=== PATIENT | female | born 1970 | race Caucasian/White ===

== ENCOUNTER 2020-03-29 12:45 | Emergency (ER) | payer MEDICARE, MEDICAID ==
[~2020-03-29] VITALS: Ht 160 cm; Wt 84.1 kg
[~2020-03-29 12:45] MED LIST: CLON-528 PO; VARE1TAB11 PO; VENL150C50 PO
[2020-03-29 13:22] LABS: CLARITY,URINE CLEAR (Clear); COLOR,URINE STRAW (Yellow); GLUCOSE, URINE NEGATIVE (Neg); KETONES,URINE NEGATIVE (Neg); LEUKOCYTE ESTERASE ,URINE NEGATIVE (Neg); NITRITES, URINE NEGATIVE (Neg); OCCULT BLOOD,URINE NEGATIVE (Neg); PH,URINE 5.5 (4.8-8.0); PROTEIN,URINE NEGATIVE (Neg); URINE HCG NEGATIVE (NEG); UROBILINOGEN,URINE 0.2 E.U/dL (0.2-1.0)
[2020-03-29 13:24] LABS: UA COLLECTION TYPE CLN CATCH MIDSTREAM
[2020-03-29] MEDS ORDERED: ketorolac trometh. 30mg/ml inj. IM ONE (14:35)
[2020-03-29] MEDS ORDERED: acetaminophen 325mg tablet PO ONE (14:35)
[2020-03-29] MEDS ORDERED: CYCL-1 PO (14:45)
[2020-03-29 14:55] VITALS: BP 133/105
== END 2020-03-29 14:56 | disposition home or self-care (01) ==
LOC: ER 12:45
DX: M54.5 Low back pain (principal); I10 Essential (primary) hypertension; E11.9 Type 2 diabetes mellitus without complications; Z87.448 Personal history of other diseases of urinary system; F17.200 Nicotine dependence, unspecified, uncomplicated; Z88.2 Allergy status to sulfonamides; Z79.899 Other long term (current) drug therapy
CPT/HCPCS: 81003; 81025; 96372; 99283; J1885

== ENCOUNTER → 2023-10-11 | Outpatient (CLI) | payer MEDICARE, MEDICAID ==
[~2023-10-11] MED LIST changes: -CLON-528 PO; +CLON-850 PO; +CYCL-1 PO
== END | disposition home or self-care (01) ==
LOC: RAD 16:25
PROVIDERS: ATTEND Nurse Practitioner Primary Care
DX: M25.522 Pain in left elbow (principal)
CPT/HCPCS: 73080

== ENCOUNTER 2024-10-02 14:07 | Emergency (ER) | payer MEDICARE, MEDICAID ==
[~2024-10-02] VITALS: Ht 160 cm; Wt 77.1 kg
--- NOTE | 2024-10-02 16:46 | Physician Documentation ---
History of Present Illness Chief Complaint: Abdominal Pain w/vomiting Stated Complaint: N/V OK to notify your PCP?: Yes Primary Medical Doctor: [facility] Source: patient, RN/MD, RN notes reviewed Mode of Arrival: POV Exam Limitations: no limitations HPI 54 year old female, with history of depression, anxiety, hyperlipidemia, hyp ertension, and kidney stones, complains of right upper and epigastric abdominal pain beginning 3 days ago after eating a chicken burger at [facility]. Pain has been waxing/waning, occasionally radiates to the back, but is currently improved. She also describes nausea and vomiting over this time. She does also note some occasional "heartburn." She denies any diarrhea, bloody stools, or fever. She denies history of gallstones. Medication Reconciliation Allergies: Coded Allergies: Sulfa (Sulfonamide Antibiotics) (Verified Allergy, Severe, PALAK, 10/02/24) Scheduled Dicyclomine Hcl* (Bentyl*), 1 CAP PO Q8H Pantoprazole Sodium (Protonix), 1 TAB PO DAILY Varenicline Tartrate (Chantix), 1 MG PO BID, (Reported) Venlafaxine Hcl* (Effexor Xr*), 300 MG PO DAILY, (Reported) Scheduled PRN Clonazepam (Klonopin), 2 TAB PO HS PRN for for anxiety/agitation, (Reported) Cyclobenzaprine* (Cyclobenzaprine*), 1 TAB PO TID PRN for muscle spasms ONDANSETRON ODT 4mg tablet (Ondansetron Odt), 1 TAB PO Q6H PRN PRN for nausea/vomiting Past Medical History Past Medical History: High Cholesterol, Hypertension, Kidney Stones, Diabetes, Anxiety, Depression Past Surgical History: noncontributory Smoking Status: Light Tobacco User (vape) Alcohol Use: Occasionally Drug Use: marijuana Lives with: Other Lives In: Home Occupation: employed Review of Systems All Other Systems at this time: Reviewed and Negative ROS As stated above in the HPI, otherwise all systems are reviewed and negative. Physical Exam Vital Signs: RN Vital Signs have been reviewed: Yes, Temperature: 98.6, Source: Temporal, Heart Rate: 83, Respiratory Rate: 18, BP: 183/99, Pulse Oximetry: 97, Weight: 77.100 Oxygen Flow Rate: 0 Pulse Oximetry Reflects: adequate oxygenation Physical Exam General: The patient is well developed, well nourished, nontoxic appearing and is in no acute distress. Skin: Santel, warm and dry with no rashes. HEENT: Head was normocephalic and atraumatic. Chest: Clear to auscultation bilaterally without wheezes, rales or rhonchi. No accessory muscle use. No dullness to percussion. Heart: Rate regular and rhythmic. S1, S2. No murmurs. Palpation of the chest wall was normal. No rubs or thrills. Abdomen: RUQ TTP. Soft and nondistended. Positive bowel sounds. No guarding or rebound. Extremities: No cyanosis, clubbing or edema. The patient moves all extremities. Pulses were equal and symmetric. Neurologic: Motor and sensation grossly intact. Cranial nerves II-XII grossly intact. A & O x4. Psychologic: Normal mood and affect. No agitation. Progress Results/Orders Reviewed/noted all lab results: Yes Results/Orders Vital Signs 10/02/24 14:08 Temp 98.6 Pulse 83 Resp 18 B/P (MAP) 183/99 Pulse Ox 97 O2 Flow Rate 0 Re-Evaluation Re-Evaluation : Re-Evaluation: Improved Progress Patient was seen and examined. Patient is given reassurance. Patient was complaining of abdominal pain postprandial has been sick patient received IV line fluids ultrasound was negative for gallstones. Fatty liver was seen on ultrasound. Cat scan results are pending patient wants to go home still having some pain. GI cocktail was provided as well as some Bentyl prescribed Bentyl Zofran and Protonix. Laboratory work CBC was within normal limits no signs of anemia. Chemistry within normal limits as well lipase 27. LFTs are pending. After some fluids pain meds nausea medications patient is still has some discomfort as well. The patient will follow up with the primary care physician as needed. With a normal white count infectious etiology is unlikely. Possibility of ulcers gastritis was also considered. There was no GI bleeding. Continuous cardiac cath technician interpretation shows normal sinus rhythm heart rate 80s, no ectopy, normal, my interpretation. Pulse oximetry monitor interpretation shows normal oxygenation 98% room air, normal, my interpretation. EKG/XRAY/CT/US/VASC/MRI CT : Impression CT OF THE ABDOMEN AND PELVIS WITH CONTRAST. HISTORY: ABD PAIN COMPARISON: None TECHNIQUE: Helical axial CT images of the abdomen and pelvis were obtained with intravenous contrast. Multiplanar reformats. One or more of the following radiation dose reduction techniques were used for this examination: automated exposure control, adjustment of the mA and/or kV according to patient size, use of iterative reconstruction technique. FINDINGS: Imaged lung bases are grossly clear. Liver: Decreased hepatic parenchymal attenuation. Scattered hypodensities throughout the liver may represent cysts but are otherwise too small to further characterize. Gallbladder and biliary system: No sizable, radiopaque cholelithiasis or biliary ductal dilatation. Pancreas: Tail of the pancreas appears to abut the left kidney. This may reflect ectopic pancreatic tissue. There is some adjacent fat stranding. Spleen: Negative. Adrenal Glands: Indeterminate left adrenal nodule measuring approximately 1.3 cm in diameter. Kidneys and collecting system: No hydroureteronephrosis or sizable, obstructing urinary tract calculi identified. Retroperitoneum: No evidence of aortic aneurysm. Lymph nodes: No discretely enlarged lymph nodes identified. Bowel: Thickening/ edema involving the distal stomach. This may be in part due to underdistention. No evidence of small-bowel obstruction. Normal caliber appendix. No free intraperitoneal air or fluid identified. Pelvis: No sizable bladder calculus. Osseous structures: No destructive osseous lesions identified. IMPRESSION: Thickening/ edema involving the distal stomach. Correlate for gastritis. Fat stranding near the tail of the pancreas. Pancreatitis is also included in the differential diagnosis. Possible ectopic pancreatic tissue near the left kidney. Indeterminate left adrenal nodule. Scattered hypodensities throughout the liver may represent cysts but are otherwise too small to further characterize. Follow-up MRI may be obtained to evaluate the hepatic, pancreatic and adrenal findings. Ultrasound : Interpreted By: self Impression RIGHT UPPER QUADRANT ABDOMINAL ULTRASOUND CLINICAL HISTORY: ruq pain post prandial COMPARISON: None TECHNIQUE: Grayscale and color Doppler ultrasound imaging of the right upper quadrant is performed. FINDINGS: Pancreas: Visualized portions appear grossly unremarkable. Liver: Increased hepatic parenchymal echogenicity. No discrete hepatic lesions as visualized. The portal vein appears patent. Gallbladder: No sizable, shadowing calculi. No gallbladder wall thickening. No sonographic gomez's sign. Common bile duct: Nondilated. Right Kidney: Measures 12.1 cm in length. No hydronephrosis. Right upper quadrant Inferior vena cava: Visualized portions appear grossly patent. IMPRESSION: Increased hepatic parenchymal echogenicity which is most commonly seen with fatty infiltration. Other diffusely infiltrative processes not excluded. Please correlate clinically. Medical Decision Making Additional info obtained from: old records Differential Dx:Considerations: Include: Appendicitis, Bowel obstruction, Cholangitis, Cholelithasis, Constipation, Diverticular disease, Esophagitis, Gastritis/PUD, Gastroenteritis, GI hemorrhage, Hernia, Hepatitis, Inflammatory BD, Pancreatitis, Urinary obstruction, Urinary tract infection, Urolithiasis, Other Departure Disposition: HOME / SELF CARE / HOMELESS Impression: Primary Impression: Abdominal pain Qualified Codes: R10.13 - Epigastric pain Additional Impression: Acute gastritis Qualified Codes: K29.00 - Acute gastritis without bleeding Condition: Improved Discharge Instructions: Abdominal Pain (Nonspecific) Referrals: NO PRIMARY CARE PROVIDER (PCP) Prescriptions Pantoprazole Sodium (Protonix) 20 Mg Tablet.dr 1 TAB PO DAILY for 15 Days, #15 TAB 0 Refills Prov: ELIOT BRAN MD 10/02/24 ONDANSETRON ODT 4mg tablet (ONDANSETRON ODT) 4 Mg Tab.rapdis 1 TAB PO Q6H PRN PRN for nausea/vomiting for 4 Days, #16 TAB 0 Refills Prov: ELIOT BRAN MD 10/02/24 Dicyclomine Hcl* (Bentyl*) 10 Mg Capsule 1 CAP PO Q8H for irritable bowel symptoms for 10 Days, #20 CAP Prov: ELIOT BRAN MD 10/02/24 Education Educated: Patient Educated regarding: diagnosis, need for follow up Additional Comment Medical Screen Exam History: 54-year-old female presents with three days of persistent upper abdominal pain beginning to travel to her lower abdomen described as pressure and gas, patient reports this began after eating at a restaurant on Wednesday and worsening until yesterday night when she had several episodes of vomiting. Patient reports oral intake due to being unable to tolerates food or drink beginning last night. Patient reports no fevers or diarrhea. Patient reports no blood in vomit or stool. Exam: VITALS: Reviewed and as above. GENERAL: Alert, nontoxic appearing, no apparent distress. RESPIRATORY: No increased work of breathing, no respiratory distress, speaking in full clear sentences GI: Nondistended, upper quadrant tender to palpation no rebound, no guarding, bowel sounds present Signature Scribe Signature: Scribed for Eliot Bran MD by Lesly Rosario . 10/02/24 17:53 Attestation: The note accurately reflects work and decisions made by me.Eliot Bran MD 10/02/24 22:11 KENDAL MALDONADO Oct 02, 2024 16:46 LESLY FARIAS Oct 02, 2024 18:00 ELIOT BRAN MD Oct 02, 2024 21:54
[2024-10-02 17:12] LABS: BASOPHILS # (AUTO) 0.1 X10'3 (0-0.2); BASOPHILS % (AUTO) 0.8 % (0-1); EOSINOPHILS % (AUTO) 0.2 % (0-6); HEMOGLOBIN 14.9 g/dl (12.0-16.0); LYMPHOCYTES # (AUTO) 1.9 X10'3 (1.1-4.8); LYMPHOCYTES % (AUTO) 19.1 % (21-51); MEAN CORPUSCULAR HEMOGLOBIN 30.1 PG (27.0-31.0); MEAN CORPUSCULAR HGB CONC 33.8 g/dL (33.0-36.5); MEAN CORPUSCULAR VOLUME 89.2 FL (78-98); MEAN PLATELET VOLUME 8.5 FL (7.4-10.4); MONOCYTES # (AUTO) 0.6 X10'3 (0-0.9); MONOCYTES % (AUTO) 6.5 % (2-12); NEUTROPHILS # (AUTO) 7.1 X10'3 (1.8-7.7); NEUTROPHILS % (AUTO) 73.4 % (42-75); PLATELET COUNT 452 X10'3 (140-440); RED BLOOD COUNT 4.93 X10'6 (4.20-5.60); RED CELL DISTRIBUTION WIDTH 13.4 % (11.5-14.5); WHITE BLOOD COUNT 9.7 X10'3 (4.5-11.0)
[2024-10-02 17:24] LABS: ALBUMIN 4.4 G/DL (3.4-5.0); ANION GAP 9 (8-16); BLOOD UREA NITROGEN 14 MG/DL (7-18); BUN/CREATININE RATIO 16.1 (10.0-20.0); CHLORIDE 102 MMOL/L (99-107); CREATININE 0.87 MG/DL (0.40-0.90); ETHANOL < 10 MG/DL (<10); GLUCOSE 121 MG/DL (70-104); LIPASE 27 U/L (16-77); MAGNESIUM 2.1 MG/DL (1.5-2.4); POTASSIUM 3.7 MMOL/L (3.5-5.1); SODIUM 141 MMOL/L (135-145); TOTAL CARBON DIOXIDE 30.2 MMOL/L (24-32); eCRCL 62 ML/MIN; eGFR 68 ML/MIN
[2024-10-02] MEDS: ondansetron/PF 4mg/2ml inj IV ONE (18:01)
[2024-10-02] MEDS: normal saline 1000ML IV soln IVB ONE (18:01)
[2024-10-02] MEDS: ketorolac trometh 15mg/ml vial 15 MG/ML ML IV ONE (18:02)
[2024-10-02 18:06] VITALS: BP 142/74; PULSE 62; O2SAT 96
[2024-10-02] MEDS ORDERED: iohexol 300mg/ml 100ml inj. ONE (19:19)
[2024-10-02] MEDS: normal saline 1000ml 1,000 ML IV ONE (20:05)
--- NOTE | 2024-10-02 20:12 | RADIOLOGY REPORT ---
RIGHT UPPER QUADRANT ABDOMINAL ULTRASOUND CLINICAL HISTORY: ruq pain post prandial COMPARISON: None TECHNIQUE: Grayscale and color Doppler ultrasound imaging of the right upper quadrant is performed. FINDINGS: Pancreas: Visualized portions appear grossly unremarkable. Liver: Increased hepatic parenchymal echogenicity. No discrete hepatic lesions as visualized. The po rtal vein appears patent. Gallbladder: No sizable, shadowing calculi. No gallbladder wall thickening. No sonographic gomez's s ign. Common bile duct: Nondilated. Right Kidney: Measures 12.1 cm in length. No hydronephrosis. Right upper quadrant Inferior vena cava: Visualized portions appear grossly patent. IMPRESSION: Increased hepatic parenchymal echogenicity which is most commonly seen with fatty infiltration. Other diffusely infiltrative processes not excluded. Please correlate clinically.
[2024-10-02] MEDS: ondansetron/PF 4mg/2ml inj IM ONE (20:38)
[2024-10-02] MEDS ORDERED: PANT20TA18 PO (21:58)
[2024-10-02] MEDS ORDERED: DICY10CA88 PO (21:58)
[2024-10-02] MEDS ORDERED: ONDA-243 PO (21:58)
[2024-10-02 22:33] LABS: ALANINE AMINOTRANSFERASE 30 U/L (12-78); ALBUMIN/GLOBULIN RATIO 1.2 (1.1-1.5); ALKALINE PHOSPHATASE 119 IU/L (46-116); ASPARTATE AMINO TRANSFERASE 18 U/L (10-37); BILIRUBIN,DIRECT 0.2 MG/DL (0-0.3); BILIRUBIN,TOTAL 0.6 MG/DL (0.1-1.0); TOTAL PROTEIN 8.1 G/DL (6.4-8.2)
[2024-10-02] MEDS: mag hydrox/Alum hydrox/simeth 30ml oral suspension PO ONE (22:33)
[2024-10-02] MEDS: LIDOcaine 2% Viscous 15ml cup MM ONE (22:33)
[2024-10-02] MEDS: dicyclomine 10 MG capsule PO ONE (22:34)
[2024-10-02] MEDS: pantoprazole 40 MG vial IV ONE (22:35)
[2024-10-02 22:42] VITALS: TEMP 98.6
--- NOTE | 2024-10-02 22:47 | RADIOLOGY REPORT ---
CT OF THE ABDOMEN AND PELVIS WITH CONTRAST. HISTORY: ABD PAIN COMPARISON: None TECHNIQUE: Helical axial CT images of the abdomen and pelvis were obtained with intravenous contrast. Multiplanar reformats. One or more of the following radiation dose reduction techniques were used fo r this examination: automated exposure control, adjustment of the mA and/or kV according to patient s ize, use of iterative reconstruction technique. FINDINGS: Imaged lung bases are grossly clear. Liver: Decreased hepatic parenchymal attenuation. Scattered hypodensities throughout the liver may r epresent cysts but are otherwise too small to further characterize. Gallbladder and biliary system: No sizable, radiopaque cholelithiasis or biliary ductal dilatation. Pancreas: Tail of the pancreas appears to abut the left kidney. This may reflect ectopic pancreatic t issue. There is some adjacent fat stranding. Spleen: Negative. Adrenal Glands: Indeterminate left adrenal nodule measuring approximately 1.3 cm in diameter. Kidneys and collecting system: No hydroureteronephrosis or sizable, obstructing urinary tract calculi identified. Retroperitoneum: No evidence of aortic aneurysm. Lymph nodes: No discretely enlarged lymph nodes identified. Bowel: Thickening/ edema involving the distal stomach. This may be in part due to underdistention. No evidence of small-bowel obstruction. Normal caliber appendix. No free intraperitoneal air or fluid identified. Pelvis: No sizable bladder calculus. Osseous structures: No destructive osseous lesions identified. IMPRESSION: Thickening/ edema involving the distal stomach. Correlate for gastritis. Fat stranding near the tail of the pancreas. Pancreatitis is also included in the differential diagno sis. Possible ectopic pancreatic tissue near the left kidney. Indeterminate left adrenal nodule. Scattered hypodensities throughout the liver may represent cysts but are otherwise too small to furth er characterize. Follow-up MRI may be obtained to evaluate the hepatic, pancreatic and adrenal findings.
[2024-10-02 23:41] VITALS: RESP 16
== END 2024-10-02 22:44 | disposition home or self-care (01) ==
LOC: ER 14:08
DX: K29.00 Acute gastritis without bleeding (principal); E11.9 Type 2 diabetes mellitus without complications; E78.00 Pure hypercholesterolemia, unspecified; I10 Essential (primary) hypertension; F41.9 Anxiety disorder, unspecified; F32.A Depression, unspecified; F12.90 Cannabis use, unspecified, uncomplicated; F17.290 Nicotine dependence, other tobacco product, uncomplicated; Z87.442 Personal history of urinary calculi; Z88.2 Allergy status to sulfonamides
CPT/HCPCS: 36415; 74177; 76700; 80048; 80076; 83690; 83735; 85025; 96361; 96372; 96374; 96375; 99285; A6258; A6402; G0480; J1885; J2405; J2470; J7030; Q9967; 80320; A6449